=== PATIENT | male | born 1945 | race Caucasian/White ===

== ENCOUNTER 2017-10-25 14:25 | Emergency (ER) | payer MEDICARE, BC ==
[2017-10-25 14:42] VITALS: BP 139/70
[2017-10-25] MEDS ORDERED: Sodium Phosphate,Monobasic/Sodium Phosphate,Dibasic Enema 133 ML Bottle RECTAL ONE (15:13)
--- NOTE | 2017-10-25 15:19 | EDM.PDOC ---
ED HPI GENERAL MEDICAL PROBLEM - General Chief Complaint: Gastrointestinal Problem Stated Complaint: BECAME WEAK AND VERY WARM Time Seen by Provider: 10/25/17 15:05 Source of Information: Reports: Patient, Family History Limitations: Reports: No Limitations - History of Present Illness INITIAL COMMENTS - FREE TEXT/NARRATIVE: 72-year-old male in with lower abdominal pain and constipation for the past 24 hours. He's had some dietary changes since August and is on Metamucil daily. After an extended time up to an hour he did have a bowel movement yesterday, but he has tried for several hours a few times since then and is unable to move his bowels. He feels a lot of lower abdominal pressure. No dysuria. No fevers or chills, no nausea or vomiting. He tried a suppository which didn't help. Onset: Gradual Location: Reports: Abdomen Severity: Moderate Associated Symptoms: Denies: Chest Pain, Cough, Fever/Chills, Loss of Appetite, Nausea/Vomiting, Shortness of Breath Treatments MATERIALS ASSISTANT: Reports: Other (see below) (Metamucil and a suppository) - Related Data Allergies Allergy/AdvReac Type Severity Reaction Status Date / Time ibuprofen Allergy Swelling Verified 07/08/16 11:41 Home Meds: Home Meds NK [No Known Home Meds] 07/08/16 [History] Past Medical History HEENT History: Reports: Impaired Vision Genitourinary History: Reports: Prostate Disorder Oncologic (Cancer) History: Reports: Prostate - Infectious Disease History Infectious Disease History: Reports: Chicken Pox, Measles - Past Surgical History Other Musculoskeletal Surgeries/Procedures:: snowmonile humorus fracture with surgery Other Oncologic Surgeries/Procedures: Prostectomy. Social & Family History - Tobacco Use Smoking Status *Q: Never Smoker - Caffeine Use Caffeine Use: Reports: None - Alcohol Use Days Per Week of Alcohol Use: 5 Number of Drinks Per Day: 1 Total Drinks Per Week: 5 - Recreational Drug Use Recreational Drug Use: No ED ROS GENERAL - Review of Systems Review Of Systems: See Below Constitutional: Reports: Malaise. Denies: Fever, Chills HEENT: Reports: No Symptoms Respiratory: Denies: Shortness of Breath Cardiovascular: Denies: Chest Pain GI/Abdominal: Reports: Abdominal Pain, Constipation. Denies: Diarrhea, Nausea, Vomiting : Reports: Other (History of prostate cancer and radiation) Skin: Reports: Pallor, Diaphoresis (Became diaphoretic and lightheaded while on the toilet) Neurological: Reports: Other (Near syncopal episode while attempting a bowel movement) Psychiatric: Reports: No Symptoms ED EXAM, GI/ABD - Physical Exam Exam: See Below Exam Limited By: No Limitations General Appearance: Alert, No Apparent Distress, Other (Patient looks uncomfortable but not distressed) Head: Atraumatic Respiratory/Chest: No Respiratory Distress, Lungs Clear Cardiovascular: Regular Rate, Rhythm GI/Abdominal Exam: Normal Bowel Sounds, Soft, Non-Tender (No significant palpation tenderness to the abdomen) (Male) Exam: Other (Patient displayed some incontinence while a rectal exam was performed) Rectal (Males) Exam: Normal Rectal Tone, Fecal Impaction Extremities: No: Pedal Edema Neurological: Alert, Oriented Psychiatric: Flat Affect Skin Exam: Warm, Dry Course - Vital Signs Last Recorded V/S: Last Vital Signs Temp 98.1 F 10/25/17 14:42 Pulse 71 10/25/17 14:42 Resp 18 10/25/17 14:42 BP 139/70 10/25/17 14:42 Pulse Ox 97 10/25/17 14:42 - Orders/Labs/Meds Meds: Medications Discontinued Medications Generic Name Dose Route Start Last Admin Trade Name Freq PRN Reason Stop Dose Admin Sodium Biphosphate/Sodium Phosphate 133 ml 10/25/17 15:13 10/25/17 15:50 Fleet Enema RECTAL 10/25/17 15:14 1 dose ONETIME ONE Administration - Re-Assessments/Exams Free Text/Narrative Re-Assessment/Exam: 10/25/17 15:19 A fleets enema was given to the patient. 10/25/17 16:31 Patient was unable to retain the fleets enema. He was then additionally digitally decompacted with good success. Departure - Departure Time of Disposition: 16:55 Disposition: Home, Self-Care 01 Condition: Good Clinical Impression: Constipation by delayed colonic transit, Abdominal pain - Discharge Information Instructions: Constipation, Adult, [id number] Referrals: PCP,None [Primary Care Provider] - Forms: ED Department Discharge Care Plan Goals: Consider stool softeners on a regular basis in addition to the fiber. Return if problems recur and you need more assistance.
== END 2017-10-25 16:55 | disposition home or self-care (01) ==
LOC: JP.ED 14:25
DX: K59.01 Slow transit constipation (principal); Z88.6 Allergy status to analgesic agent
CPT/HCPCS: 99285; A9270